=== PATIENT | female | born 1980 | race Two or more races ===

== ENCOUNTER 2024-02-09 05:01 | Emergency (ER) | payer SELFPAY ==
[2024-02-09] MEDS: Acetaminophen/oxyCODONE 325-5 MG Tab PO ONE (06:37)
== END 2024-02-09 09:09 | disposition home or self-care (01) ==
LOC: JD.ED 05:01
DX: M79.641 Pain in right hand (principal); R20.2 Paresthesia of skin
CPT/HCPCS: 73030; 93971; 99284; A9270